=== PATIENT | male | born 1985 | race Caucasian/White ===

== ENCOUNTER 2017-09-22 02:25 | Emergency (ER) | payer MEDICAID ==
[~2017-09-22] VITALS: Ht 170.2 cm; Wt 75.0 kg
[2017-09-22 02:33] VITALS: BP 118/74
== END 2017-09-22 02:56 | disposition home or self-care (01) ==
LOC: ER 02:25
DX: J06.9 Acute upper respiratory infection, unspecified (principal); F17.200 Nicotine dependence, unspecified, uncomplicated
CPT/HCPCS: 99281

== ENCOUNTER 2022-04-15 19:34 | Emergency (ER) | payer SELFPAY ==
[~2022-04-15] VITALS: Ht 167.6 cm; Wt 86.4 kg
[2022-04-15 19:37] VITALS: BP 124/90
[2022-04-15] MEDS ORDERED: LIDOcaine 1% W/epiNEPHrine 1:100,000 20ml vial SQ ONE (21:10)
[2022-04-15] MEDS ORDERED: LIDOcaine 1% w/EPI 1:100,000 30ml vial (MDV) SQ ONE (21:20)
[2022-04-15] MEDS ORDERED: sulfamethoxazole/trimethoprim DS (800/160mg) tablet PO ONE (21:25)
[2022-04-15] MEDS ORDERED: SULF1TAB49 PO (21:53)
== END 2022-04-15 22:01 | disposition home or self-care (01) ==
LOC: ER 19:34
DX: L02.01 Cutaneous abscess of face (principal); Z88.5 Allergy status to narcotic agent
CPT/HCPCS: 10060; 99283; A6449

== ENCOUNTER 2022-12-04 16:46 | Emergency (ER) | payer SELFPAY ==
[~2022-12-04] VITALS: Ht 170.2 cm; Wt 86.4 kg
[2022-12-04 17:06] VITALS: BP 140/82
[2022-12-04] MEDS ORDERED: PRED20TA PO (18:04)
[2022-12-04] MEDS ORDERED: dexamethasone sod phosphate 10mg/ml inj IM STA (18:05)
== END 2022-12-04 19:04 | disposition home or self-care (01) ==
LOC: ER 16:46
DX: L23.7 Allergic contact dermatitis due to plants, except food (principal); Z88.5 Allergy status to narcotic agent; Z79.899 Other long term (current) drug therapy
CPT/HCPCS: 99283

== ENCOUNTER 2023-10-28 21:03 | Emergency (ER) | payer MEDICAID ==
[~2023-10-28] VITALS: Ht 170.2 cm; Wt 89.8 kg
[2023-10-28 21:16] VITALS: BP 132/83; PULSE 105; TEMP 98.5; O2SAT 97
[2023-10-29] MEDS ORDERED: DOXY-356 PO (01:29)
[2023-10-29 01:32] VITALS: RESP 16
[2023-10-29] MEDS: CefTRIAXone 1000mg IM Kit (w/lidocaine diluent) IM ONE (01:38)
[2023-10-29] MEDS: azithromycin 250mg tablet PO ONE (01:38)
== END 2023-10-29 01:45 | disposition home or self-care (01) ==
LOC: ER 21:03
DX: A64 Unspecified sexually transmitted disease (principal); Z88.5 Allergy status to narcotic agent; Z79.2 Long term (current) use of antibiotics
CPT/HCPCS: 96372; 99283; J0696